=== PATIENT | female | born 1980 | race Caucasian/White ===

== ENCOUNTER 2017-02-03 17:56 | Emergency (ER) | payer OTHER ==
[~2017-02-03] VITALS: Ht 154.9 cm; Wt 81.1 kg
[~2017-02-03 17:56] MED LIST: CYCL-319 PO; HYDR-3498 PO; LEVO50TA74 PO; PRED20TA PO
[2017-02-03 18:01] VITALS: Ht 154.9 cm; Wt 81.1 kg
--- NOTE | 2017-02-03 20:32 | ERD ---
ER Documentation Chief Complaint Chief Complaint vag bleed x 3 days , 7 weeks preg , lower back pain HPI 36-year-old female who is approximately 8 weeks , , a 1 presents with history of vaginal bleeding over the last 3 days. She states that her last ultrasound was done with her primary care doctor about a week ago and she was told that she was approximately 7 weeks. She describes low back pain that is cramping like, and mild vaginal bleeding. She denies fevers, chills, chest pain, shortness breath. She denies pelvic pain, dizziness. ROS All systems reviewed and are negative except as per history of present illness. Medications Home Meds Active Scripts Prednisone* (Prednisone*) 20 Mg Tab, 40 MG PO DAILY for 5 Days, TAB Prov:VESNA ROBERSON DO 05/16/15 Cyclobenzaprine Hcl* (Cyclobenzaprine Hcl*) 10 Mg Tablet, 10 MG PO TID, #15 TAB Prov:VESNA ROBERSON DO 05/16/15 Hydrocodone Bit-Acetaminophen* ([place]*) 5-325 Mg Tab, 1 TAB PO Q6 Y for PAIN, # 11 TAB Prov:KAROL,VESNA 05/16/15 Reported Medications Levothyroxine Sodium* (Levothyroxine Sodium*) 50 Mcg Tablet, 50 MCG PO AC BREAKFAST, TAB 09/24/14 Allergies Allergies: Coded Allergies: naproxen (Verified Allergy, Mild, itch, hives, 09/28/14) PMhx/Soc History of Surgery: No Anesthesia Reaction: No Hx Neurological Disorder: No Hx Respiratory Disorders: No Hx Cardiac Disorders: No Hx Psychiatric Problems: No Hx Miscellaneous Medical Probl: Yes (hypothyroid) Hx Alcohol Use: No Hx Substance Use: No Hx Tobacco Use: No Smoking Status: Never smoker Physical Exam Vitals Vital Signs Date Time Temp Pulse Resp B/P Pulse Ox O2 Delivery O2 Flow Rate FiO2 02/03/17 18:01 97.7 75 16 142/77 99 Physical Exam General: Well-developed, well-nourished. The patient appears in no acute distress. HEENT: Head is normocephalic, atraumatic. No scleral icterus. Neck: Supple. Nontender. Lungs: Clear to auscultation. Normal air movement. Heart: Regular rate and rhythm. S1 and S2 are normal. No murmurs, gallops, or rubs. Abdomen: Soft, nontender, nondistended. Bowel sounds are normoactive. Extremities: No clubbing or cyanosis. Normal pulses. Moving extremities x 4. No weakness. Neurologic: Alert and oriented 3. No focal deficits. Skin: Normal turgor. No rash or lesions. Result Diagram: 02/03/172009 Results 24 hrs Laboratory Tests Test 02/03/17 20:10 White Blood Count 11.910^3/ul Red Blood Count 4.7210^6/ul Hemoglobin 14.4g/dl Hematocrit 42.9% Mean Corpuscular Volume 90.9fl Mean Corpuscular Hemoglobin 30.5pg Mean Corpuscular Hemoglobin Concent 33.6g/dl Red Cell Distribution Width 13.0% Platelet Count 73186^3/UL Mean Platelet Volume 10.4fl Neutrophils % 55.4% Lymphocytes % 32.5% Monocytes % 7.4% Eosinophils % 4.0% Basophils % 0.4% Nucleated Red Blood Cells % 0.0/100WBC Neutrophils # 6.610^3/ul Lymphocytes # 3.910^3/ul Monocytes # 0.910^3/ul Eosinophils # 0.510^3/ul Basophils # 0.110^3/ul Nucleated Red Blood Cells # 0.010^3/ul Urine Color YELLOW Urine Clarity CLEAR Urine pH 5.0 Urine Specific [place] 1.013 Urine Ketones NEGATIVEmg/dL Urine Nitrite NEGATIVEmg/dL Urine Bilirubin NEGATIVEmg/dL Urine Urobilinogen NEGATIVEmg/dL Urine Leukocyte Esterase NEGATIVELeu/ul Urine Microscopic RBC > 182/HPF Urine Microscopic WBC 8/HPF Urine Squamous Epithelial Cells FEW/HPF Urine Hemoglobin 3+mg/dL Urine Glucose NEGATIVEmg/dL Urine Total Protein 1+mg/dl Beta HCG, Quantitative 6888.5mIU/ml DIAGNOSTIC IMAGING REPORT Patient: COLLETTE JAMES : 1980 Age: 36 Sex: F MR #: [id number] [facility] #: [id number] DOS: 02/03/172003 Ordering MD: SUSU KELLEY PA-C Location: [facility] Room/Bed: PROCEDURE: OB Ultrasound. CLINICAL INDICATION: Positive test. Vaginal bleeding. TECHNIQUE: Ultrasound of the pelvis was performed with transabdominal and transvaginal sonography in the axial and sagittal planes. COMPARISON: No prior study is available for comparison. FINDINGS: There is a single irregular intrauterine gestational sac. pole and yolk sac are present. There is no heart motion. There is a subchorionic hemorrhage measuring 2.1 x 0.5 x 1.3 cm. [place]-rump length is 0.37 cm. Mean sac diameter is 1.42 cm. There is a fundal fibroid anteriorly measuring 1.0 cm and a fundal fibroid measuring 2.2 cm. Menstrual age by ultrasound dates is 6 weeks 0 days. This indicates an expected date of delivery of 09/29/2017. The right ovary appears normal measuring 3.3 x 2.2 x 2.5 cm. The left ovary is not visualized. Color Doppler and pulsed Doppler sonography demonstrate normal flow to the right ovary. There is no other pelvic mass or free fluid. IMPRESSION: 1. Single irregular intrauterine gestational sac with pole and yolk sac present. No heart motion indicates probable demise. However, due to early gestational age, follow up is advised in 7 days. 2. Fundal fibroids measuring 1.0 cm and 2.2 cm. 3. Left ovary not visualized. 4. Otherwise unremarkable study. RPTAT: QQ .Que Viveros MD, MD Date Time Electronically viewed and signed by .Que Viveros MD, MD on 02/03/2017 20:47 .R/ CC: SUSU KELLEY PA-C Procedures/[facility] 36-year-old female comes in with vaginal bleeding, she states that she had an ultrasound done less than a week ago where she was told that she is approximately 7 weeks, but does not know if there was a heartbeat at the time. Patient's pelvic ultrasound shows an intrauterine however no heart tones that is suggestive of demise but may be too early and needs a follow-up ultrasound. The patient will be given information for a threatened , differential diagnosis is versus missed , incomplete . There is no evidence of ectopic or adnexal masses. Patient 's Rh status is positive, no indication for RhoGam at this time. Departure Diagnosis: Primary Impression: Threatened Additional Impression: Fibroid, uterine Condition: Good SUSU KELLEY PA-C Feb 03, 2017 20:32
--- NOTE | 2017-02-03 20:32 | ERD ---
ER Documentation Chief Complaint Chief Complaint vag bleed x 3 days , 7 weeks preg , lower back pain HPI 36-year-old female who is approximately 8 weeks , , a 1 presents with history of vaginal bleeding over the last 3 days. She states that her last ultrasound was done with her primary care doctor about a week ago and she was told that she was approximately 7 weeks. She describes low back pain that is cramping like, and mild vaginal bleeding. She denies fevers, chills, chest pain, shortness breath. She denies pelvic pain, dizziness. ROS All systems reviewed and are negative except as per history of present illness. Medications Home Meds Active Scripts Prednisone* (Prednisone*) 20 Mg Tab, 40 MG PO DAILY for 5 Days, TAB Prov:VESNA ROBERSON DO 05/16/15 Cyclobenzaprine Hcl* (Cyclobenzaprine Hcl*) 10 Mg Tablet, 10 MG PO TID, #15 TAB Prov:VESNA ROBERSON DO 05/16/15 Hydrocodone Bit-Acetaminophen* ([place]*) 5-325 Mg Tab, 1 TAB PO Q6 Y for PAIN, # 11 TAB Prov:KAROL,VESNA 05/16/15 Reported Medications Levothyroxine Sodium* (Levothyroxine Sodium*) 50 Mcg Tablet, 50 MCG PO AC BREAKFAST, TAB 09/24/14 Allergies Allergies: Coded Allergies: naproxen (Verified Allergy, Mild, itch, hives, 09/28/14) PMhx/Soc History of Surgery: No Anesthesia Reaction: No Hx Neurological Disorder: No Hx Respiratory Disorders: No Hx Cardiac Disorders: No Hx Psychiatric Problems: No Hx Miscellaneous Medical Probl: Yes (hypothyroid) Hx Alcohol Use: No Hx Substance Use: No Hx Tobacco Use: No Smoking Status: Never smoker Physical Exam Vitals Vital Signs Date Time Temp Pulse Resp B/P Pulse Ox O2 Delivery O2 Flow Rate FiO2 02/03/17 18:01 97.7 75 16 142/77 99 Physical Exam General: Well-developed, well-nourished. The patient appears in no acute distress. HEENT: Head is normocephalic, atraumatic. No scleral icterus. Neck: Supple. Nontender. Lungs: Clear to auscultation. Normal air movement. Heart: Regular rate and rhythm. S1 and S2 are normal. No murmurs, gallops, or rubs. Abdomen: Soft, nontender, nondistended. Bowel sounds are normoactive. Extremities: No clubbing or cyanosis. Normal pulses. Moving extremities x 4. No weakness. Neurologic: Alert and oriented 3. No focal deficits. Skin: Normal turgor. No rash or lesions. Result Diagram: 02/03/172009 Results 24 hrs Laboratory Tests Test 02/03/17 20:10 White Blood Count 11.910^3/ul Red Blood Count 4.7210^6/ul Hemoglobin 14.4g/dl Hematocrit 42.9% Mean Corpuscular Volume 90.9fl Mean Corpuscular Hemoglobin 30.5pg Mean Corpuscular Hemoglobin Concent 33.6g/dl Red Cell Distribution Width 13.0% Platelet Count 63028^3/UL Mean Platelet Volume 10.4fl Neutrophils % 55.4% Lymphocytes % 32.5% Monocytes % 7.4% Eosinophils % 4.0% Basophils % 0.4% Nucleated Red Blood Cells % 0.0/100WBC Neutrophils # 6.610^3/ul Lymphocytes # 3.910^3/ul Monocytes # 0.910^3/ul Eosinophils # 0.510^3/ul Basophils # 0.110^3/ul Nucleated Red Blood Cells # 0.010^3/ul Urine Color YELLOW Urine Clarity CLEAR Urine pH 5.0 Urine Specific [place] 1.013 Urine Ketones NEGATIVEmg/dL Urine Nitrite NEGATIVEmg/dL Urine Bilirubin NEGATIVEmg/dL Urine Urobilinogen NEGATIVEmg/dL Urine Leukocyte Esterase NEGATIVELeu/ul Urine Microscopic RBC > 182/HPF Urine Microscopic WBC 8/HPF Urine Squamous Epithelial Cells FEW/HPF Urine Hemoglobin 3+mg/dL Urine Glucose NEGATIVEmg/dL Urine Total Protein 1+mg/dl Beta HCG, Quantitative 6888.5mIU/ml DIAGNOSTIC IMAGING REPORT Patient: COLLETTE JAMES : 1980 Age: 36 Sex: F MR #: [id number] [facility] #: [id number] DOS: 02/03/172003 Ordering MD: SUSU KELLEY PA-C Location: [facility] Room/Bed: PROCEDURE: OB Ultrasound. CLINICAL INDICATION: Positive test. Vaginal bleeding. TECHNIQUE: Ultrasound of the pelvis was performed with transabdominal and transvaginal sonography in the axial and sagittal planes. COMPARISON: No prior study is available for comparison. FINDINGS: There is a single irregular intrauterine gestational sac. pole and yolk sac are present. There is no heart motion. There is a subchorionic hemorrhage measuring 2.1 x 0.[address] [place]-rump length is 0.37 cm. Mean sac diameter is 1.42 cm. There is a fundal fibroid anteriorly measuring 1.0 cm and a fundal fibroid measuring 2.2 cm. Menstrual age by ultrasound dates is 6 weeks 0 days. This indicates an expected date of delivery of 09/29/2017. The right ovary appears normal measuring 3.3 x 2.2 x 2.5 cm. The left ovary is not visualized. Color Doppler and pulsed Doppler sonography demonstrate normal flow to the right ovary. There is no other pelvic mass or free fluid. IMPRESSION: 1. Single irregular intrauterine gestational sac with pole and yolk sac present. No heart motion indicates probable demise. However, due to early gestational age, follow up is advised in 7 days. 2. Fundal fibroids measuring 1.0 cm and 2.2 cm. 3. Left ovary not visualized. 4. Otherwise unremarkable study. RPTAT: QQ .Que Viveros MD, MD Date Time Electronically viewed and signed by .Que Viveros MD, MD on 02/03/2017 20:47 .R/ CC: SUSU KELLEY PA-C Procedures/[facility] 36-year-old female comes in with vaginal bleeding, she states that she had an ultrasound done less than a week ago where she was told that she is approximately 7 weeks, but does not know if there was a heartbeat at the time. Patient's pelvic ultrasound shows an intrauterine however no heart tones that is suggestive of demise but may be too early and needs a follow-up ultrasound. The patient will be given information for a threatened , differential diagnosis is versus missed , incomplete . There is no evidence of ectopic or adnexal masses. Patient 's Rh status is positive, no indication for RhoGam at this time. Departure Diagnosis: Primary Impression: Threatened Additional Impression: Fibroid, uterine Condition: Good SUSU KELLEY PA-C Feb 03, 2017 20:32
--- NOTE | 2017-02-03 20:32 | ERD ---
ER Documentation Chief Complaint Chief Complaint vag bleed x 3 days , 7 weeks preg , lower back pain HPI 36-year-old female who is approximately 8 weeks , , a 1 presents with history of vaginal bleeding over the last 3 days. She states that her last ultrasound was done with her primary care doctor about a week ago and she was told that she was approximately 7 weeks. She describes low back pain that is cramping like, and mild vaginal bleeding. She denies fevers, chills, chest pain, shortness breath. She denies pelvic pain, dizziness. ROS All systems reviewed and are negative except as per history of present illness. Medications Home Meds Active Scripts Prednisone* (Prednisone*) 20 Mg Tab, 40 MG PO DAILY for 5 Days, TAB Prov:VESNA ROBERSON DO 05/16/15 Cyclobenzaprine Hcl* (Cyclobenzaprine Hcl*) 10 Mg Tablet, 10 MG PO TID, #15 TAB Prov:VESNA ROBERSON DO 05/16/15 Hydrocodone Bit-Acetaminophen* ([place]*) 5-325 Mg Tab, 1 TAB PO Q6 Y for PAIN, # 11 TAB Prov:KAROL,VESNA 05/16/15 Reported Medications Levothyroxine Sodium* (Levothyroxine Sodium*) 50 Mcg Tablet, 50 MCG PO AC BREAKFAST, TAB 09/24/14 Allergies Allergies: Coded Allergies: naproxen (Verified Allergy, Mild, itch, hives, 09/28/14) PMhx/Soc History of Surgery: No Anesthesia Reaction: No Hx Neurological Disorder: No Hx Respiratory Disorders: No Hx Cardiac Disorders: No Hx Psychiatric Problems: No Hx Miscellaneous Medical Probl: Yes (hypothyroid) Hx Alcohol Use: No Hx Substance Use: No Hx Tobacco Use: No Smoking Status: Never smoker Physical Exam Vitals Vital Signs Date Time Temp Pulse Resp B/P Pulse Ox O2 Delivery O2 Flow Rate FiO2 02/03/17 18:01 97.7 75 16 142/77 99 Physical Exam General: Well-developed, well-nourished. The patient appears in no acute distress. HEENT: Head is normocephalic, atraumatic. No scleral icterus. Neck: Supple. Nontender. Lungs: Clear to auscultation. Normal air movement. Heart: Regular rate and rhythm. S1 and S2 are normal. No murmurs, gallops, or rubs. Abdomen: Soft, nontender, nondistended. Bowel sounds are normoactive. Extremities: No clubbing or cyanosis. Normal pulses. Moving extremities x 4. No weakness. Neurologic: Alert and oriented 3. No focal deficits. Skin: Normal turgor. No rash or lesions. Result Diagram: 02/03/172009 Results 24 hrs Laboratory Tests Test 02/03/17 20:10 White Blood Count 11.910^3/ul Red Blood Count 4.7210^6/ul Hemoglobin 14.4g/dl Hematocrit 42.9% Mean Corpuscular Volume 90.9fl Mean Corpuscular Hemoglobin 30.5pg Mean Corpuscular Hemoglobin Concent 33.6g/dl Red Cell Distribution Width 13.0% Platelet Count 80552^3/UL Mean Platelet Volume 10.4fl Neutrophils % 55.4% Lymphocytes % 32.5% Monocytes % 7.4% Eosinophils % 4.0% Basophils % 0.4% Nucleated Red Blood Cells % 0.0/100WBC Neutrophils # 6.610^3/ul Lymphocytes # 3.910^3/ul Monocytes # 0.910^3/ul Eosinophils # 0.510^3/ul Basophils # 0.110^3/ul Nucleated Red Blood Cells # 0.010^3/ul Urine Color YELLOW Urine Clarity CLEAR Urine pH 5.0 Urine Specific [place] 1.013 Urine Ketones NEGATIVEmg/dL Urine Nitrite NEGATIVEmg/dL Urine Bilirubin NEGATIVEmg/dL Urine Urobilinogen NEGATIVEmg/dL Urine Leukocyte Esterase NEGATIVELeu/ul Urine Microscopic RBC > 182/HPF Urine Microscopic WBC 8/HPF Urine Squamous Epithelial Cells FEW/HPF Urine Hemoglobin 3+mg/dL Urine Glucose NEGATIVEmg/dL Urine Total Protein 1+mg/dl Beta HCG, Quantitative 6888.5mIU/ml DIAGNOSTIC IMAGING REPORT Patient: COLLETTE JAMES : 1980 Age: 36 Sex: F MR #: [id number] [facility] #: [id number] DOS: 02/03/172003 Ordering MD: SUSU KELLEY PA-C Location: [facility] Room/Bed: PROCEDURE: OB Ultrasound. CLINICAL INDICATION: Positive test. Vaginal bleeding. TECHNIQUE: Ultrasound of the pelvis was performed with transabdominal and transvaginal sonography in the axial and sagittal planes. COMPARISON: No prior study is available for comparison. FINDINGS: There is a single irregular intrauterine gestational sac. pole and yolk sac are present. There is no heart motion. There is a subchorionic hemorrhage measuring 2.1 x 0.5 x 1.3 cm. [place]-rump length is 0.37 cm. Mean sac diameter is 1.42 cm. There is a fundal fibroid anteriorly measuring 1.0 cm and a fundal fibroid measuring 2.2 cm. Menstrual age by ultrasound dates is 6 weeks 0 days. This indicates an expected date of delivery of 09/29/2017. The right ovary appears normal measuring 3.3 x 2.2 x 2.5 cm. The left ovary is not visualized. Color Doppler and pulsed Doppler sonography demonstrate normal flow to the right ovary. There is no other pelvic mass or free fluid. IMPRESSION: 1. Single irregular intrauterine gestational sac with pole and yolk sac present. No heart motion indicates probable demise. However, due to early gestational age, follow up is advised in 7 days. 2. Fundal fibroids measuring 1.0 cm and 2.2 cm. 3. Left ovary not visualized. 4. Otherwise unremarkable study. RPTAT: QQ .Que Viveros MD, MD Date Time Electronically viewed and signed by .Que Viveros MD, MD on 02/03/2017 20:47 .R/ CC: SUSU KELLEY PA-C Procedures/[facility] 36-year-old female comes in with vaginal bleeding, she states that she had an ultrasound done less than a week ago where she was told that she is approximately 7 weeks, but does not know if there was a heartbeat at the time. Patient's pelvic ultrasound shows an intrauterine however no heart tones that is suggestive of demise but may be too early and needs a follow-up ultrasound. The patient will be given information for a threatened , differential diagnosis is versus missed , incomplete . There is no evidence of ectopic or adnexal masses. Patient 's Rh status is positive, no indication for RhoGam at this time. Departure Diagnosis: Primary Impression: Threatened Additional Impression: Fibroid, uterine Condition: Good SUSU KELLEY PA-C Feb 03, 2017 20:32
--- NOTE | 2017-02-03 20:48 | RADRPT ---
PROCEDURE: OB Ultrasound. CLINICAL INDICATION: Positive test. Vaginal bleeding. TECHNIQUE: Ultrasound of the pelvis was performed with transabdominal and transvaginal sonography in the axial and sagittal planes. COMPARISON: No prior study is available for comparison. FINDINGS: There is a single irregular intrauterine gestational sac. pole and yolk sac are present. There is no heart motion. There is a subchorionic hemorrhage measuring 2.1 x 0.5 x 1.3 cm. [place]-rump length is 0.37 cm. Mean sac diameter is 1.42 cm. There is a fundal fibroid anteriorly measuring 1.0 cm and a fundal fibroid measuring 2.2 cm. Menstrual age by ultrasound dates is 6 weeks 0 days. This indicates an expected date of delivery of 09/29/2017. The right ovary appears normal measuring 3.3 x 2.2 x 2.5 cm. The left ovary is not visualized. Color Doppler and pulsed Doppler sonography demonstrate normal flow to the right ovary. There is no other pelvic mass or free fluid. IMPRESSION: 1. Single irregular intrauterine gestational sac with pole and yolk sac present. No hea rt motion indicates probable demise. However, due to early gestational age, follow up is advis ed in 7 days. 2. Fundal fibroids measuring 1.0 cm and 2.2 cm. 3. Left ovary not visualized. 4. Otherwise unremarkable study. RPTAT: QQ .Que Viveros MD, Date Time Electronically viewed and signed by .Que Viveros MD, on 02/03/2017 20:47 .R/
== END 2017-02-03 22:01 | disposition home or self-care (01) ==
LOC: FTE 17:56
DX: O34.11 Maternal care for benign tumor of corpus uteri, first trimester (principal); O20.0 Threatened abortion; O99.281 Endocrine, nutritional and metabolic diseases complicating pregnancy, first trimester; E03.9 Hypothyroidism, unspecified; R10.2 Pelvic and perineal pain; Z3A.01 Less than 8 weeks gestation of pregnancy
CPT/HCPCS: 36415; 76801; 76817; 81001; 84702; 85025; 86900; 86901; Z7502

== ENCOUNTER 2017-02-09 18:57 | Emergency (ER) | payer OTHER ==
[~2017-02-09] VITALS: Ht 157.5 cm; Wt 80.8 kg
[2017-02-09 19:09] VITALS: Ht 157.5 cm; Wt 80.8 kg
[2017-02-09] MEDS ORDERED: ACETAMINOPHEN 325 MG TAB PO STA (20:47)
--- NOTE | 2017-02-09 21:33 | RADRPT ---
PROCEDURE: US Pelvis. CLINICAL INDICATION: vaginal bleeding TECHNIQUE: Multiple sonographic images of the pelvis were obtained utilizing a transabdominal and endovaginal technique. The images were reviewed on a PACS workstation. COMPARISON: US PELVIS 02/03/2017 FINDINGS: The uterus is normal in size and demonstrates a heterogeneous appearance of the myometrium. There a re multiple fibroids, the largest measuring 2.2 cm. The endometrial stripe is homogeneous in appeara nce and has the thickness of 11 mm. No intrauterine gestation is noted. Previously seen IUP is no longer visualized. The ovaries are normal in size and echogenicity. Normal Doppler flow is identified in both ovaries. The right ovary measures 3.1 x 2.0 cm. There is a small right ovarian hemorrhagic corpus luteum cyst . The left ovary measures 2.3 x 1.1 cm. No free fluid is present within the pelvis.. RPTAT: AA IMPRESSION: Previously seen IUP no longer visualized. The findings likely represent a recent . Normal appearance of the endometrium. Fibroid uterus. Follow-up ultrasound and HCG levels is recommended. .Hudson Palafox MD, MD Date Time Electronically viewed and signed by .Hudson Palafox MD, MD on 02/09/2017 21:33 .S/
[2017-02-09] MEDS ORDERED: IBUPROFEN 600 MG TAB PO ONE (23:30)
[2017-02-09] MEDS ORDERED: HYDROCODONE/APAP (5/325) TAB PO ONE (23:30)
--- NOTE | 2017-02-10 00:08 | ERD ---
ER Documentation Chief Complaint Chief Complaint Vaginal bleeding, Miscarriage last week HPI The patient is a 36-year-old recently female, , who presents to the Emergency Department with complaint of vaginal bleeding. The patient reports that her bleeding began approximately 10 days ago. She was then seen in the ED on 02/03/2017, at which time she was noted to have a likely failed . Since, she has continued to experience bleeding, with passage of small blood clots. She has saturated 4 sanitary pads in the last 24 hours. She reports a cramping pain to the lower abdomen, with is intermittent. She has not tried any medication for pain relief. Denies fevers, sweats, chills, nausea, vomiting, diarrhea, dysuria, flank pain. Denies new vaginal discharge. Denies chest pain, palpitations, shortness of breath, headache, dizziness, weakness. The patient has not yet seen an CHECKER IN since her last visit to the ED. ROS All systems reviewed and are negative except as per history of present illness. Medications Home Meds Active Scripts Ibuprofen* (Motrin*) 600 Mg Tab, 600 MG PO Q6, #30 TAB Prov:YOVANA HADDAD PA-C 02/10/17 Misoprostol* (Cytotec*) 100 Mcg Tablet, 200 MCG PO Q6 for 1 Day, TAB Prov:YOVANA HADDAD PA-C 02/10/17 Hydrocodone/Acetaminophen (Henderson 5-325 Tablet) 1 Each Tablet, 1 EACH PO Q6, #12 TAB Prov:YOVANA HADDAD PA-C 02/10/17 Prednisone* (Prednisone*) 20 Mg Tab, 40 MG PO DAILY for 5 Days, TAB Prov:VESNA ROBERSON DO 05/16/15 Cyclobenzaprine Hcl* (Cyclobenzaprine Hcl*) 10 Mg Tablet, 10 MG PO TID, #15 TAB Prov:VESNA ROBERSON DO 05/16/15 Hydrocodone Bit-Acetaminophen* (Henderson*) 5-325 Mg Tab, 1 TAB PO Q6 Y for PAIN, # 11 TAB Prov:VESNA ROBERSON DO 05/16/15 Reported Medications Levothyroxine Sodium* (Levothyroxine Sodium*) 50 Mcg Tablet, 50 MCG PO AC BREAKFAST, TAB 09/24/14 Allergies Allergies: Coded Allergies: naproxen (Verified Allergy, Mild, itch, hives, 09/28/14) PMhx/Soc Medical and Surgical Hx: pt denies Surgical Hx History of Surgery: No Anesthesia Reaction: No Hx Neurological Disorder: No Hx Respiratory Disorders: No Hx Cardiac Disorders: No Hx Psychiatric Problems: No Hx Miscellaneous Medical Probl: Yes (hypothyroid) Hx Alcohol Use: No Hx Substance Use: No Hx Tobacco Use: No Smoking Status: Never smoker Physical Exam Vitals Vital Signs Date Time Temp Pulse Resp B/P Pulse Ox O2 Delivery O2 Flow Rate FiO2 02/10/17 00:20 98.1 71 18 142/67 99 Room Air 02/09/17 19:09 98.7 76 20 187/91 98 Physical Exam GENERAL: Well-developed, well-nourished, in no acute distress. HEENT: Head is normocephalic, atraumatic. No scleral pallor or icterus. Pupils equal, round and reactive to light. Extraocular movements intact. Conjunctiva pink. Moist mucous membranes. NECK: Supple. Full range of motion. RESPIRATORY: Lungs are clear to auscultation bilaterally. Equal breath sounds. Normal expiratory effort. CARDIOVASCULAR: Regular rate and rhythm. S1 and S2 normal. No murmurs, rubs, or gallops. GASTROINTESTINAL: Abdomen is soft, nontender, and nondistended. No guarding, no rebound tenderness. Normal bowel sounds. No gross peritonitis. FLANK: No CVA tenderness, no mass or swelling. BACK: No midline tenderness. GENITOURINARY: ED RN Melinda present as law firm consultant. Normal external genitalia. Cervical os minimally open, with few blood clots in the os, which was removed. Small amount of bleeding. No hemorrhage. No abnormal discharge. No cervical motion tenderness. No adnexal tenderness. No uterine tenderness. No masses. EXTREMITIES: No clubbing, cyanosis, or edema. Normal skin perfusion. Moving all extremities. Muscle tone is normal. No focal swelling or erythema. Distal pulses are palpable, 2+ bilaterally. Capillary refill is less than 2 seconds. NEUROLOGIC: The patient is alert, awake, and oriented x 3. No focal neurologic deficits. INTEGUMENT: Skin is clean, dry and intact. PSYCHIATRIC: Appropriate; Cooperative. Result Diagram: 02/09/172124 Results 24 hrs Laboratory Tests Test 02/09/17 21:25 02/09/17 21:30 White Blood Count 9.910^3/ul Red Blood Count 4.2310^6/ul Hemoglobin 12.9g/dl Hematocrit 39.0% Mean Corpuscular Volume 92.2fl Mean Corpuscular Hemoglobin 30.5pg Mean Corpuscular Hemoglobin Concent 33.1g/dl Red Cell Distribution Width 12.8% Platelet Count 62404^3/UL Mean Platelet Volume 10.4fl Neutrophils % 53.7% Lymphocytes % 34.2% Monocytes % 7.6% Eosinophils % 3.6% Basophils % 0.7% Nucleated Red Blood Cells % 0.0/100WBC Neutrophils # 5.310^3/ul Lymphocytes # 3.410^3/ul Monocytes # 0.810^3/ul Eosinophils # 0.410^3/ul Basophils # 0.110^3/ul Nucleated Red Blood Cells # 0.010^3/ul Beta HCG, Quantitative 365.5mIU/ml Urine Color YELLOW Urine Clarity CLEAR Urine pH 5.0 Urine Specific [place] 1.014 Urine Ketones TRACEmg/dL Urine Nitrite NEGATIVEmg/dL Urine Bilirubin NEGATIVEmg/dL Urine Urobilinogen NEGATIVEmg/dL Urine Leukocyte Esterase NEGATIVELeu/ul Urine Microscopic RBC 59/HPF Urine Microscopic WBC 9/HPF Urine Squamous Epithelial Cells FEW/HPF Urine Bacteria FEW/HPF Urine Hemoglobin 3+mg/dL Urine Glucose NEGATIVEmg/dL Urine Total Protein NEGATIVEmg/dl Current Medications Medications (Trade) Dose Ordered Sig/Kriss Route PRN Reason Start Time Stop Time Status Last Admin Dose Admin Acetaminophen (Tylenol Tab) 650 mg ONCE STAT PO 02/09/17 20:47 02/09/17 20:48 DC 02/09/17 21:29 Acetaminophen/ Hydrocodone Bitart ([place] (5/325)) 1 tab ONCE ONCE PO 02/09/17 23:30 02/09/17 23:40 DC Ibuprofen (Motrin) 600 mg ONCE ONCE PO 02/09/17 23:30 02/09/17 23:31 DC 02/09/17 23:25 Procedures/MDM DIAGNOSTIC TESTS AND INTERPRETATION: PROCEDURE: US Pelvis. CLINICAL INDICATION: vaginal bleeding TECHNIQUE: Multiple sonographic images of the pelvis were obtained utilizing a transabdominal and endovaginal technique. The images were reviewed on a PACS workstation. COMPARISON: US PELVIS 02/03/2017 FINDINGS: The uterus is normal in size and demonstrates a heterogeneous appearance of the myometrium. There are multiple fibroids, the largest measuring 2.2 cm. The endometrial stripe is homogeneous in appearance and has the thickness of 11 mm. No intrauterine gestation is noted. Previously seen IUP is no longer visualized. The ovaries are normal in size and echogenicity. Normal Doppler flow is identified in both ovaries. The right ovary measures 3.1 x 2.0 cm. There is a small right ovarian hemorrhagic corpus luteum cyst. The left ovary measures 2.3 x 1.1 cm. No free fluid is present within the pelvis.. IMPRESSION: Previously seen IUP no longer visualized. The findings likely represent a recent . Normal appearance of the endometrium. Fibroid uterus. Follow-up ultrasound and HCG levels is recommended. .Hudson Palafox MD, MD Date Time Electronically viewed and signed by .Hudson Palafox MD, on 02/09/2017 21: 33 CONSULTATION: Discussed patient case, history, results with CHECKER IN on-call, Dr. Garcia, who recommends that the patient be discharged home with prescription for Cytotec 200 mg PO q6hrs x 24 hours. MEDICAL DECISION MAKING: This is a 36-year-old female presenting to the Emergency Department with vaginal bleeding. On genitourinary examination, a few small blood clots were noted near the cervical os, which were removed. Otherwise , minimal bleeding was noted. She had no abdominal tenderness, no peritoneal signs. Differential diagnosis includes, but is not limited to, ectopic , cervicitis, fibroids, molar , implantation bleeding, heterotopic , septic , missed , incomplete , inevitable , threatened , complete , coagulopathy, fibroids, adenomyosis, endometriosis, neoplasia, vaginitis, PID, vaginal trauma, dysfunctional uterine bleeding. No significant abnormalities were noted on testing ordered. Beta hCG is 365.5, decreased from 6888.5 on 02/03/2017. Rh (+), no indication for RhoGAM. Ultrasound performed noted that the previously seen IUP is no longer visualized, likely representing a recent . After rest and administration of medications, the patient reports no new complaints. Upon review and interpretation of the patient's presentation and overall ER course, I believe the patient's symptoms are most consistent with spontaneous . At this time the patient patient is in stable condition and therefore she can be discharged home with prescriptions for Cytotec, Ibuprofen, Henderson, and strict return precautions for signs of deteriorating or worsening condition. The patient is advised to follow up with her CHECKER IN within 1-2 days for reevaluation and further management, or return to the ER sooner for any new or worsening symptoms. I shared all laboratory and diagnostic imaging studies with the patient at length and in great detail, and the patient verbally understands and agrees with the plan for further observation and care as an outpatient. At the time of discharge, all questions were answered. Departure Diagnosis: Primary Impression: Spontaneous Additional Impression: Vaginal bleeding Condition: Stable Patient Instructions: Miscarriage, Spontaneous (Completed), Misoprostol Oral tablet Additional Instructions: Llame al doctor MAANA y corey harriett DEIRDRE PARA DENTRO DE 1-2 CAPONE.Dgale a la secretaria que nosotros le instruimos hacer esta deirdre.Avise o llame si hernandez condicin se empeora antes de la deirdre. Regresa aqui si peor o no mejor. YOVANA HADDAD PA-C Feb 10, 2017 00:08
--- NOTE | 2017-02-10 00:08 | ERD ---
ER Documentation Chief Complaint Chief Complaint Vaginal bleeding, Miscarriage last week HPI The patient is a 36-year-old recently female, , who presents to the Emergency Department with complaint of vaginal bleeding. The patient reports that her bleeding began approximately 10 days ago. She was then seen in the ED on 02/03/2017, at which time she was noted to have a likely failed . Since, she has continued to experience bleeding, with passage of small blood clots. She has saturated 4 sanitary pads in the last 24 hours. She reports a cramping pain to the lower abdomen, with is intermittent. She has not tried any medication for pain relief. Denies fevers, sweats, chills, nausea, vomiting, diarrhea, dysuria, flank pain. Denies new vaginal discharge. Denies chest pain, palpitations, shortness of breath, headache, dizziness, weakness. The patient has not yet seen an ELECTRIC LOCOMOTIVE CRANE OPERATOR since her last visit to the ED. ROS All systems reviewed and are negative except as per history of present illness. Medications Home Meds Active Scripts Ibuprofen* (Motrin*) 600 Mg Tab, 600 MG PO Q6, #30 TAB Prov:YOVANA HADDAD PA-C 02/10/17 Misoprostol* (Cytotec*) 100 Mcg Tablet, 200 MCG PO Q6 for 1 Day, TAB Prov:YOVANA HADDAD PA-C 02/10/17 Hydrocodone/Acetaminophen ([place] 5-325 Tablet) 1 Each Tablet, 1 EACH PO Q6, #12 TAB Prov:YOVANA HADDAD PA-C 02/10/17 Prednisone* (Prednisone*) 20 Mg Tab, 40 MG PO DAILY for 5 Days, TAB Prov:VESAN ROBERSON DO 05/16/15 Cyclobenzaprine Hcl* (Cyclobenzaprine Hcl*) 10 Mg Tablet, 10 MG PO TID, #15 TAB Prov:VESNA ROBERSON DO 05/16/15 Hydrocodone Bit-Acetaminophen* ([place]*) 5-325 Mg Tab, 1 TAB PO Q6 Y for PAIN, # 11 TAB Prov:VESNA ROBERSON DO 05/16/15 Reported Medications Levothyroxine Sodium* (Levothyroxine Sodium*) 50 Mcg Tablet, 50 MCG PO AC BREAKFAST, TAB 09/24/14 Allergies Allergies: Coded Allergies: naproxen (Verified Allergy, Mild, itch, hives, 09/28/14) PMhx/Soc Medical and Surgical Hx: pt denies Surgical Hx History of Surgery: No Anesthesia Reaction: No Hx Neurological Disorder: No Hx Respiratory Disorders: No Hx Cardiac Disorders: No Hx Psychiatric Problems: No Hx Miscellaneous Medical Probl: Yes (hypothyroid) Hx Alcohol Use: No Hx Substance Use: No Hx Tobacco Use: No Smoking Status: Never smoker Physical Exam Vitals Vital Signs Date Time Temp Pulse Resp B/P Pulse Ox O2 Delivery O2 Flow Rate FiO2 02/10/17 00:20 98.1 71 18 142/67 99 Room Air 02/09/17 19:09 98.7 76 20 187/91 98 Physical Exam GENERAL: Well-developed, well-nourished, in no acute distress. HEENT: Head is normocephalic, atraumatic. No scleral pallor or icterus. Pupils equal, round and reactive to light. Extraocular movements intact. Conjunctiva pink. Moist mucous membranes. NECK: Supple. Full range of motion. RESPIRATORY: Lungs are clear to auscultation bilaterally. Equal breath sounds. Normal expiratory effort. CARDIOVASCULAR: Regular rate and rhythm. S1 and S2 normal. No murmurs, rubs, or gallops. GASTROINTESTINAL: Abdomen is soft, nontender, and nondistended. No guarding, no rebound tenderness. Normal bowel sounds. No gross peritonitis. FLANK: No CVA tenderness, no mass or swelling. BACK: No midline tenderness. GENITOURINARY: ED RN Melinda present as dry pan feeder. Normal external genitalia. Cervical os minimally open, with few blood clots in the os, which was removed. Small amount of bleeding. No hemorrhage. No abnormal discharge. No cervical motion tenderness. No adnexal tenderness. No uterine tenderness. No masses. EXTREMITIES: No clubbing, cyanosis, or edema. Normal skin perfusion. Moving all extremities. Muscle tone is normal. No focal swelling or erythema. Distal pulses are palpable, 2+ bilaterally. Capillary refill is less than 2 seconds. NEUROLOGIC: The patient is alert, awake, and oriented x 3. No focal neurologic deficits. INTEGUMENT: Skin is clean, dry and intact. PSYCHIATRIC: Appropriate; Cooperative. Result Diagram: 02/09/172124 Results 24 hrs Laboratory Tests Test 02/09/17 21:25 02/09/17 21:30 White Blood Count 9.910^3/ul Red Blood Count 4.2310^6/ul Hemoglobin 12.9g/dl Hematocrit 39.0% Mean Corpuscular Volume 92.2fl Mean Corpuscular Hemoglobin 30.5pg Mean Corpuscular Hemoglobin Concent 33.1g/dl Red Cell Distribution Width 12.8% Platelet Count 19726^3/UL Mean Platelet Volume 10.4fl Neutrophils % 53.7% Lymphocytes % 34.2% Monocytes % 7.6% Eosinophils % 3.6% Basophils % 0.7% Nucleated Red Blood Cells % 0.0/100WBC Neutrophils # 5.310^3/ul Lymphocytes # 3.410^3/ul Monocytes # 0.810^3/ul Eosinophils # 0.410^3/ul Basophils # 0.110^3/ul Nucleated Red Blood Cells # 0.010^3/ul Beta HCG, Quantitative 365.5mIU/ml Urine Color YELLOW Urine Clarity CLEAR Urine pH 5.0 Urine Specific [place] 1.014 Urine Ketones TRACEmg/dL Urine Nitrite NEGATIVEmg/dL Urine Bilirubin NEGATIVEmg/dL Urine Urobilinogen NEGATIVEmg/dL Urine Leukocyte Esterase NEGATIVELeu/ul Urine Microscopic RBC 59/HPF Urine Microscopic WBC 9/HPF Urine Squamous Epithelial Cells FEW/HPF Urine Bacteria FEW/HPF Urine Hemoglobin 3+mg/dL Urine Glucose NEGATIVEmg/dL Urine Total Protein NEGATIVEmg/dl Current Medications Medications (Trade) Dose Ordered Sig/Kriss Route PRN Reason Start Time Stop Time Status Last Admin Dose Admin Acetaminophen (Tylenol Tab) 650 mg ONCE STAT PO 02/09/17 20:47 02/09/17 20:48 DC 02/09/17 21:29 Acetaminophen/ Hydrocodone Bitart ([place] (5/325)) 1 tab ONCE ONCE PO 02/09/17 23:30 02/09/17 23:40 DC Ibuprofen (Motrin) 600 mg ONCE ONCE PO 02/09/17 23:30 02/09/17 23:31 DC 02/09/17 23:25 Procedures/MDM DIAGNOSTIC TESTS AND INTERPRETATION: PROCEDURE: US Pelvis. CLINICAL INDICATION: vaginal bleeding TECHNIQUE: Multiple sonographic images of the pelvis were obtained utilizing a transabdominal and endovaginal technique. The images were reviewed on a PACS workstation. COMPARISON: US PELVIS 02/03/2017 FINDINGS: The uterus is normal in size and demonstrates a heterogeneous appearance of the myometrium. There are multiple fibroids, the largest measuring 2.2 cm. The endometrial stripe is homogeneous in appearance and has the thickness of 11 mm. No intrauterine gestation is noted. Previously seen IUP is no longer visualized. The ovaries are normal in size and echogenicity. Normal Doppler flow is identified in both ovaries. The right ovary measures 3.1 x 2.0 cm. There is a small right ovarian hemorrhagic corpus luteum cyst. The left ovary measures 2.3 x 1.1 cm. No free fluid is present within the pelvis.. IMPRESSION: Previously seen IUP no longer visualized. The findings likely represent a recent . Normal appearance of the endometrium. Fibroid uterus. Follow-up ultrasound and HCG levels is recommended. .Hudson Palafox MD, MD Date Time Electronically viewed and signed by .Hudson Palafox MD, on 02/09/2017 21: 33 CONSULTATION: Discussed patient case, history, results with ELECTRIC LOCOMOTIVE CRANE OPERATOR on-call, Dr. Garcia, who recommends that the patient be discharged home with prescription for Cytotec 200 mg PO q6hrs x 24 hours. MEDICAL DECISION MAKING: This is a 36-year-old female presenting to the Emergency Department with vaginal bleeding. On genitourinary examination, a few small blood clots were noted near the cervical os, which were removed. Otherwise , minimal bleeding was noted. She had no abdominal tenderness, no peritoneal signs. Differential diagnosis includes, but is not limited to, ectopic , cervicitis, fibroids, molar , implantation bleeding, heterotopic , septic , missed , incomplete , inevitable , threatened , complete , coagulopathy, fibroids, adenomyosis, endometriosis, neoplasia, vaginitis, PID, vaginal trauma, dysfunctional uterine bleeding. No significant abnormalities were noted on testing ordered. Beta hCG is 365.5, decreased from 6888.5 on 02/03/2017. Rh (+), no indication for RhoGAM. Ultrasound performed noted that the previously seen IUP is no longer visualized, likely representing a recent . After rest and administration of medications, the patient reports no new complaints. Upon review and interpretation of the patient's presentation and overall ER course, I believe the patient's symptoms are most consistent with spontaneous . At this time the patient patient is in stable condition and therefore she can be discharged home with prescriptions for Cytotec, Ibuprofen, [place], and strict return precautions for signs of deteriorating or worsening condition. The patient is advised to follow up with her ELECTRIC LOCOMOTIVE CRANE OPERATOR within 1-2 days for reevaluation and further management, or return to the ER sooner for any new or worsening symptoms. I shared all laboratory and diagnostic imaging studies with the patient at length and in great detail, and the patient verbally understands and agrees with the plan for further observation and care as an outpatient. At the time of discharge, all questions were answered. Departure Diagnosis: Primary Impression: Spontaneous Additional Impression: Vaginal bleeding Condition: Stable Patient Instructions: Miscarriage, Spontaneous (Completed), Misoprostol Oral tablet Additional Instructions: Llame al doctor MAANA y corey harriett DEIRDRE PARA DENTRO DE 1-2 CAPONE.Dgale a la secretaria que nosotros le instruimos hacer esta deirdre.Avise o llame si hernandez condicin se empeora antes de la deirdre. Regresa aqui si peor o no mejor. YOVANA HADDAD PA-C Feb 10, 2017 00:08
--- NOTE | 2017-02-10 00:08 | ERD ---
ER Documentation Chief Complaint Chief Complaint Vaginal bleeding, Miscarriage last week HPI The patient is a 36-year-old recently female, , who presents to the Emergency Department with complaint of vaginal bleeding. The patient reports that her bleeding began approximately 10 days ago. She was then seen in the ED on 02/03/2017, at which time she was noted to have a likely failed . Since, she has continued to experience bleeding, with passage of small blood clots. She has saturated 4 sanitary pads in the last 24 hours. She reports a cramping pain to the lower abdomen, with is intermittent. She has not tried any medication for pain relief. Denies fevers, sweats, chills, nausea, vomiting, diarrhea, dysuria, flank pain. Denies new vaginal discharge. Denies chest pain, palpitations, shortness of breath, headache, dizziness, weakness. The patient has not yet seen an [employer] since her last visit to the ED. ROS All systems reviewed and are negative except as per history of present illness. Medications Home Meds Active Scripts Ibuprofen* (Motrin*) 600 Mg Tab, 600 MG PO Q6, #30 TAB Prov:YOVANA HADDAD PA-C 02/10/17 Misoprostol* (Cytotec*) 100 Mcg Tablet, 200 MCG PO Q6 for 1 Day, TAB Prov:YOVANA HADDAD PA-C 02/10/17 Hydrocodone/Acetaminophen ([place] 5-325 Tablet) 1 Each Tablet, 1 EACH PO Q6, #12 TAB Prov:YOVANA HADDAD PA-C 02/10/17 Prednisone* (Prednisone*) 20 Mg Tab, 40 MG PO DAILY for 5 Days, TAB Prov:VESNA ROBERSON DO 05/16/15 Cyclobenzaprine Hcl* (Cyclobenzaprine Hcl*) 10 Mg Tablet, 10 MG PO TID, #15 TAB Prov:VESNA ROBERSON DO 05/16/15 Hydrocodone Bit-Acetaminophen* ([place]*) 5-325 Mg Tab, 1 TAB PO Q6 Y for PAIN, # 11 TAB Prov:VESNA ROBERSON DO 05/16/15 Reported Medications Levothyroxine Sodium* (Levothyroxine Sodium*) 50 Mcg Tablet, 50 MCG PO AC BREAKFAST, TAB 09/24/14 Allergies Allergies: Coded Allergies: naproxen (Verified Allergy, Mild, itch, hives, 09/28/14) PMhx/Soc Medical and Surgical Hx: pt denies Surgical Hx History of Surgery: No Anesthesia Reaction: No Hx Neurological Disorder: No Hx Respiratory Disorders: No Hx Cardiac Disorders: No Hx Psychiatric Problems: No Hx Miscellaneous Medical Probl: Yes (hypothyroid) Hx Alcohol Use: No Hx Substance Use: No Hx Tobacco Use: No Smoking Status: Never smoker Physical Exam Vitals Vital Signs Date Time Temp Pulse Resp B/P Pulse Ox O2 Delivery O2 Flow Rate FiO2 02/10/17 00:20 98.1 71 18 142/67 99 Room Air 02/09/17 19:09 98.7 76 20 187/91 98 Physical Exam GENERAL: Well-developed, well-nourished, in no acute distress. HEENT: Head is normocephalic, atraumatic. No scleral pallor or icterus. Pupils equal, round and reactive to light. Extraocular movements intact. Conjunctiva pink. Moist mucous membranes. NECK: Supple. Full range of motion. RESPIRATORY: Lungs are clear to auscultation bilaterally. Equal breath sounds. Normal expiratory effort. CARDIOVASCULAR: Regular rate and rhythm. S1 and S2 normal. No murmurs, rubs, or gallops. GASTROINTESTINAL: Abdomen is soft, nontender, and nondistended. No guarding, no rebound tenderness. Normal bowel sounds. No gross peritonitis. FLANK: No CVA tenderness, no mass or swelling. BACK: No midline tenderness. GENITOURINARY: ED RN Melinda present as pump runner. Normal external genitalia. Cervical os minimally open, with few blood clots in the os, which was removed. Small amount of bleeding. No hemorrhage. No abnormal discharge. No cervical motion tenderness. No adnexal tenderness. No uterine tenderness. No masses. EXTREMITIES: No clubbing, cyanosis, or edema. Normal skin perfusion. Moving all extremities. Muscle tone is normal. No focal swelling or erythema. Distal pulses are palpable, 2+ bilaterally. Capillary refill is less than 2 seconds. NEUROLOGIC: The patient is alert, awake, and oriented x 3. No focal neurologic deficits. INTEGUMENT: Skin is clean, dry and intact. PSYCHIATRIC: Appropriate; Cooperative. Result Diagram: 02/09/172124 Results 24 hrs Laboratory Tests Test 02/09/17 21:25 02/09/17 21:30 White Blood Count 9.910^3/ul Red Blood Count 4.2310^6/ul Hemoglobin 12.9g/dl Hematocrit 39.0% Mean Corpuscular Volume 92.2fl Mean Corpuscular Hemoglobin 30.5pg Mean Corpuscular Hemoglobin Concent 33.1g/dl Red Cell Distribution Width 12.8% Platelet Count 03359^3/UL Mean Platelet Volume 10.4fl Neutrophils % 53.7% Lymphocytes % 34.2% Monocytes % 7.6% Eosinophils % 3.6% Basophils % 0.7% Nucleated Red Blood Cells % 0.0/100WBC Neutrophils # 5.310^3/ul Lymphocytes # 3.410^3/ul Monocytes # 0.810^3/ul Eosinophils # 0.410^3/ul Basophils # 0.110^3/ul Nucleated Red Blood Cells # 0.010^3/ul Beta HCG, Quantitative 365.5mIU/ml Urine Color YELLOW Urine Clarity CLEAR Urine pH 5.0 Urine Specific [place] 1.014 Urine Ketones TRACEmg/dL Urine Nitrite NEGATIVEmg/dL Urine Bilirubin NEGATIVEmg/dL Urine Urobilinogen NEGATIVEmg/dL Urine Leukocyte Esterase NEGATIVELeu/ul Urine Microscopic RBC 59/HPF Urine Microscopic WBC 9/HPF Urine Squamous Epithelial Cells FEW/HPF Urine Bacteria FEW/HPF Urine Hemoglobin 3+mg/dL Urine Glucose NEGATIVEmg/dL Urine Total Protein NEGATIVEmg/dl Current Medications Medications (Trade) Dose Ordered Sig/Kriss Route PRN Reason Start Time Stop Time Status Last Admin Dose Admin Acetaminophen (Tylenol Tab) 650 mg ONCE STAT PO 02/09/17 20:47 02/09/17 20:48 DC 02/09/17 21:29 Acetaminophen/ Hydrocodone Bitart ([place] (5/325)) 1 tab ONCE ONCE PO 02/09/17 23:30 02/09/17 23:40 DC Ibuprofen (Motrin) 600 mg ONCE ONCE PO 02/09/17 23:30 02/09/17 23:31 DC 02/09/17 23:25 Procedures/MDM DIAGNOSTIC TESTS AND INTERPRETATION: PROCEDURE: US Pelvis. CLINICAL INDICATION: vaginal bleeding TECHNIQUE: Multiple sonographic images of the pelvis were obtained utilizing a transabdominal and endovaginal technique. The images were reviewed on a PACS workstation. COMPARISON: US PELVIS 02/03/2017 FINDINGS: The uterus is normal in size and demonstrates a heterogeneous appearance of the myometrium. There are multiple fibroids, the largest measuring 2.2 cm. The endometrial stripe is homogeneous in appearance and has the thickness of 11 mm. No intrauterine gestation is noted. Previously seen IUP is no longer visualized. The ovaries are normal in size and echogenicity. Normal Doppler flow is identified in both ovaries. The right ovary measures 3.1 x 2.0 cm. There is a small right ovarian hemorrhagic corpus luteum cyst. The left ovary measures 2.3 x 1.1 cm. No free fluid is present within the pelvis.. IMPRESSION: Previously seen IUP no longer visualized. The findings likely represent a recent . Normal appearance of the endometrium. Fibroid uterus. Follow-up ultrasound and HCG levels is recommended. .Hudson Palafox MD, MD Date Time Electronically viewed and signed by .Hudson Palafox MD, on 02/09/2017 21: 33 CONSULTATION: Discussed patient case, history, results with [employer] on-call, Dr. Garcia, who recommends that the patient be discharged home with prescription for Cytotec 200 mg PO q6hrs x 24 hours. MEDICAL DECISION MAKING: This is a 36-year-old female presenting to the Emergency Department with vaginal bleeding. On genitourinary examination, a few small blood clots were noted near the cervical os, which were removed. Otherwise , minimal bleeding was noted. She had no abdominal tenderness, no peritoneal signs. Differential diagnosis includes, but is not limited to, ectopic , cervicitis, fibroids, molar , implantation bleeding, heterotopic , septic , missed , incomplete , inevitable , threatened , complete , coagulopathy, fibroids, adenomyosis, endometriosis, neoplasia, vaginitis, PID, vaginal trauma, dysfunctional uterine bleeding. No significant abnormalities were noted on testing ordered. Beta hCG is 365.5, decreased from 6888.5 on 02/03/2017. Rh (+), no indication for RhoGAM. Ultrasound performed noted that the previously seen IUP is no longer visualized, likely representing a recent . After rest and administration of medications, the patient reports no new complaints. Upon review and interpretation of the patient's presentation and overall ER course, I believe the patient's symptoms are most consistent with spontaneous . At this time the patient patient is in stable condition and therefore she can be discharged home with prescriptions for Cytotec, Ibuprofen, [place], and strict return precautions for signs of deteriorating or worsening condition. The patient is advised to follow up with her [employer] within 1-2 days for reevaluation and further management, or return to the ER sooner for any new or worsening symptoms. I shared all laboratory and diagnostic imaging studies with the patient at length and in great detail, and the patient verbally understands and agrees with the plan for further observation and care as an outpatient. At the time of discharge, all questions were answered. Departure Diagnosis: Primary Impression: Spontaneous Additional Impression: Vaginal bleeding Condition: Stable Patient Instructions: Miscarriage, Spontaneous (Completed), Misoprostol Oral tablet Additional Instructions: Llame al doctor MAANA y corey harriett DEIRDRE PARA DENTRO DE 1-2 CAPONE.Dgale a la secretaria que nosotros le instruimos hacer esta deirdre.Avise o llame si hernandez condicin se empeora antes de la deirdre. Regresa aqui si peor o no mejor. YOVANA HADDAD PA-C Feb 10, 2017 00:08
[2017-02-10] MEDS ORDERED: HYDR-906 PO (00:10)
[2017-02-10] MEDS ORDERED: MISO100T PO (00:10)
[2017-02-10] MEDS ORDERED: IBUP-1542 PO (00:12)
[2017-02-10 00:20] VITALS: BP 142/67; PULSE 71; RESP 18; TEMP 98.1
== END 2017-02-10 00:20 | disposition home or self-care (01) ==
LOC: FTE 18:57
DX: O03.9 Complete or unspecified spontaneous abortion without complication (principal); E03.9 Hypothyroidism, unspecified; O99.280 Endocrine, nutritional and metabolic diseases complicating pregnancy, unspecified trimester; R10.2 Pelvic and perineal pain
CPT/HCPCS: 36415; 76801; 76817; 81001; 84702; 85025; 86900; 86901; Z7502; Z7610